=== PATIENT | male | born 1945 | race Caucasian/White ===

== ENCOUNTER 2018-10-05 20:08 | Emergency (ER) | payer MEDICARE ==
[~2018-10-05] VITALS: Ht 182.9 cm; Wt 106.8 kg
[2018-10-05] MEDS ORDERED: CHLORTHALIDONE25 MG PO (20:38)
[2018-10-05] MEDS ORDERED: COREG6.25 MG PO (20:38)
[2018-10-05] MEDS ORDERED: CARVEDILOL25 MG PO (20:38)
[2018-10-05] MEDS ORDERED: LISINOPRIL40 MG PO (20:39)
[2018-10-05] MEDS ORDERED: OMEPRAZOLE10 MG PO (20:39)
[2018-10-05] MEDS ORDERED: ELIQUIS5 MG PO (20:39)
[2018-10-05] MEDS ORDERED: VITAMIN B-12500 MCG PO (20:40)
[2018-10-05] MEDS ORDERED: NORVASC5 M1 PO (20:40)
[2018-10-05 21:20] VITALS: BP 140/76
[2018-10-05] MEDS ORDERED: NAPROSYN500 MG PO (23:22)
== END 2018-10-05 21:20 | disposition home or self-care (01) ==
LOC: ED 20:08
PROC: 2W3DX1Z Immobilization of Left Lower Arm using Splint (ICD-10-PCS; principal; 2018-10-05)
DX: S52.502A Unspecified fracture of the lower end of left radius, initial encounter for closed fracture (principal); S60.222A Contusion of left hand, initial encounter; W01.0XXA Fall on same level from slipping, tripping and stumbling without subsequent striking against object, initial encounter; Y93.69 Activity, other involving other sports and athletics played as a team or group; Y92.39 Other specified sports and athletic area as the place of occurrence of the external cause

== ENCOUNTER 2020-08-05 12:03 | Emergency (ER) | payer MEDICARE ==
[~2020-08-05] VITALS: Ht 182.9 cm; Wt 109.0 kg
[~2020-08-05 12:03] MED LIST: CARVEDILOL25 MG PO; CHLORTHALIDONE25 MG PO; COREG6.25 MG PO; ELIQUIS5 MG PO; LISINOPRIL40 MG PO; NAPROSYN500 MG PO; NORVASC5 M1 PO; OMEPRAZOLE10 MG PO; VITAMIN B-12500 MCG PO
[2020-08-05 12:54] VITALS: BP 128/61
[2020-08-05] MEDS ORDERED: MEDDOSEPAK PO (12:59)
== END 2020-08-05 13:05 | disposition home or self-care (01) ==
LOC: ED 12:03
DX: M77.52 Other enthesopathy of left foot and ankle (principal); I10 Essential (primary) hypertension; Z95.810 Presence of automatic (implantable) cardiac defibrillator

== ENCOUNTER 2021-04-29 12:04 | Emergency (ER) | payer MEDICARE ==
[~2021-04-29] VITALS: Ht 182.9 cm; Wt 113.0 kg
[~2021-04-29 12:04] MED LIST changes: +MEDDOSEPAK PO
[2021-04-29 13:56] VITALS: BP 164/73
== END 2021-04-29 14:06 | disposition home or self-care (01) ==
LOC: ED 12:04
DX: S63.591A Other specified sprain of right wrist, initial encounter (principal); I10 Essential (primary) hypertension; I48.91 Unspecified atrial fibrillation; V48.4XXA Person boarding or alighting a car injured in noncollision transport accident, initial encounter; Z95.810 Presence of automatic (implantable) cardiac defibrillator

== ENCOUNTER 2021-07-31 21:42 | Emergency (ER) | payer MEDICARE ==
[~2021-07-31] VITALS: Ht 182.9 cm; Wt 110.0 kg
[2021-07-31] MEDS ORDERED: HYDROCHLOROT25 MG PO (22:23)
[2021-07-31] MEDS ORDERED: B121000 MC1 PO (22:24)
[2021-07-31] MEDS ORDERED: AMLOD/BENAZP1 CA2 PO (22:25)
[2021-07-31] MEDS ORDERED: LORATADINE10 M1 PO (22:25)
[2021-07-31] MEDS ORDERED: ZINC50 M1 PO (22:26)
[2021-07-31] MEDS ORDERED: KEFLEX500 MG PO (23:19)
[2021-07-31 23:30] VITALS: BP 169/71
== END 2021-07-31 23:40 | disposition home or self-care (01) ==
LOC: ED 21:42
PROC: 0HQKXZZ Repair Right Lower Leg Skin, External Approach (ICD-10-PCS; principal; 2021-07-31)
DX: S81.811A Laceration without foreign body, right lower leg, initial encounter (principal); I10 Essential (primary) hypertension; I48.91 Unspecified atrial fibrillation; W25.XXXA Contact with sharp glass, initial encounter; Y93.E9 Activity, other interior property and clothing maintenance; Y92.009 Unspecified place in unspecified non-institutional (private) residence as the place of occurrence of the external cause; Z95.810 Presence of automatic (implantable) cardiac defibrillator; Z79.01 Long term (current) use of anticoagulants

== ENCOUNTER 2021-08-09 08:51 | Emergency (ER) | payer OTHER, MEDICARE ==
[~2021-08-09] VITALS: Ht 182.9 cm; Wt 95.0 kg
[~2021-08-09 08:51] MED LIST changes: +AMLOD/BENAZP1 CA2 PO; +B121000 MC1 PO; +HYDROCHLOROT25 MG PO; +KEFLEX500 MG PO; +LORATADINE10 M1 PO; +ZINC50 M1 PO
[2021-08-09 11:03] VITALS: BP 128/68
== END 2021-08-09 11:08 | disposition home or self-care (01) | DRG 950 ==
LOC: ED 08:51
DX: S81.811D Laceration without foreign body, right lower leg, subsequent encounter (principal); I10 Essential (primary) hypertension; I48.91 Unspecified atrial fibrillation; X58.XXXD Exposure to other specified factors, subsequent encounter; Z95.810 Presence of automatic (implantable) cardiac defibrillator

== ENCOUNTER 2021-08-15 08:22 | Emergency (ER) | payer OTHER, MEDICARE ==
[~2021-08-15] VITALS: Ht 182.9 cm; Wt 91.0 kg
[2021-08-15 08:45] VITALS: BP 155/67
== END 2021-08-15 08:45 | disposition home or self-care (01) | DRG 950 ==
LOC: ED 08:22
DX: S81.811D Laceration without foreign body, right lower leg, subsequent encounter (principal); I10 Essential (primary) hypertension; I48.91 Unspecified atrial fibrillation; Z95.810 Presence of automatic (implantable) cardiac defibrillator; X58.XXXD Exposure to other specified factors, subsequent encounter

== ENCOUNTER 2023-03-20 15:23 | Observation (INO) | payer OTHER, MEDICARE ==
[2023-03-20] VITALS (10 sets, daily range): BP systolic 119–159; BP diastolic 67–88
[~2023-03-20] VITALS: Ht 182.9 cm; Wt 103.6 kg
[2023-03-20 15:59] LABS: BASO% 0.9 % (0-3); EOS% 16.8 % (0-8); HEMATOCRIT 40.8 % (39.0-50.0); IMMATURE GRANULOCYTES 0.3 % (0.0-5.0); LYMPH% 28.6 % (15-41); MEAN CELL VOLUME 81.3 fL CALC (80.0-100.0); MEAN CORPUSCULAR HGB 25.9 pG CALC (26.0-32.0); MEAN CORPUSCULAR HGB CONC 31.9 g/dL CAL (32.0-36.0); MONO% 8.8 % (2-13); NEUT# 2.62 thou/uL (1.82-7.42); NEUT% 44.6 % (42-76); RED BLOOD COUNT 5.02 mill/uL (4.70-6.10); RED CELL DISTRI WIDTH 15.7 % (11.5-15.5)
[2023-03-20 16:20] LABS: INTERNATIONAL NORMALIZED RATIO 1.2 RATIO (0.7-1.3); PROTHROMBIN TIME 11.1 SECONDS (9.0-12.5)
[2023-03-20 16:23] LABS: ALBUMIN 4.4 g/dL (3.2-5.0); ALKALINE PHOSPHATASE 63 u/l (38-126); ANION GAP 14 (6-22 (CALC)); BUN 17 mg/dL (8-23); BUN/CREATININE RATIO 17 (12-20 (CALC)); CALCULATED LDLCHOLESTEROL 125 mg/dL (62-129 (CALC)); CARBON DIOXIDE 24 mmol/l (22-30); CHLORIDE 104 mmol/l (95-108); CHOLESTEROL HDL RATIO 4.3 (<4.4 (CALC)); GFR FOR AFR.AMER. > 60 ML/MIN (>=60 (CALC)); GFR OTHER RACES > 60 ML/MIN (>=60 (CALC)); HDL CHOLESTEROL 45 mg/dL (39.0-59.0); POTASSIUM 3.9 mmol/l (3.5-5.1); SGOT/AST 28 u/l (19-48); SODIUM 138 mmol/l (137-146); TOTAL CHOLESTEROL 197 mg/dl (0-199); TOTAL PROTEIN 7.2 g/dL (6.3-8.2); TOTAL TRIGLYCERIDES 136 mg/dl (0-149); VLDL CHOLESTROL 27 mg/dl (0-38 (CALC))
[2023-03-20 18:09] LABS: URINE BILIRUBIN - DIPSTICK Negative (NEGATIVE); URINE BLOOD DIPSTICK Negative (NEGATIVE); URINE GLUCOSE - DIPSTICK Negative (NEGATIVE); URINE KETONE Negative (NEGATIVE); URINE LEUK ESTERASE Negative (NEGATIVE); URINE NITRITE - DIPSTICK Negative (Negative); URINE PROTEIN - DIPSTICK Negative (NEG-TRACE); URINE SPECIFIC GRAVITY 1.015; URINE UROBILINOGEN - DIPSTICK 0.2 E.U./dL (0.2)
[2023-03-20 18:10] LABS: URINE COLOR Yellow
[2023-03-21 04:07] VITALS: BP 113/76
[2023-03-21 05:45] LABS: HEMATOCRIT 39.2 % (39.0-50.0); HEMOGLOBIN 12.5 g/dl (14.0-18.0); MEAN CELL VOLUME 81.5 fL CALC (80.0-100.0); MEAN CORPUSCULAR HGB CONC 31.9 g/dL CAL (32.0-36.0); RED BLOOD COUNT 4.81 mill/uL (4.70-6.10); RED CELL DISTRI WIDTH 15.5 % (11.5-15.5)
[2023-03-21 05:58] LABS: ANION GAP 11 (6-22 (CALC)); BUN 15 mg/dL (8-23); BUN/CREATININE RATIO 18 (12-20 (CALC)); CARBON DIOXIDE 25 mmol/l (22-30); CHLORIDE 106 mmol/l (95-108); CREATININE 0.9 mg/dL (0.7-1.3); GFR FOR AFR.AMER. > 60 ML/MIN (>=60 (CALC)); GFR OTHER RACES > 60 ML/MIN (>=60 (CALC)); MAGNESIUM 1.9 mg/dL (1.6-2.3); POTASSIUM 3.8 mmol/l (3.5-5.1); SODIUM 138 mmol/l (137-146)
[2023-03-21 06:26] VITALS: BP 155/85
[2023-03-21 11:01] VITALS: BP 156/89
[2023-03-21] MEDS ORDERED: ATORVASTATIN CA40 MG PO (12:21)
[2023-03-21 15:20] VITALS: BP 122/78
== END 2023-03-21 18:58 | disposition home or self-care (01) | DRG 948 ==
LOC: ED 15:23 → ED-I 17:09 → ED 17:33 → MS2 17:34
PROVIDERS: Emergency Medicine; ADMIT Student in an Organized Health Care Education/Training Program; ATTEND Student in an Organized Health Care Education/Training Program
DX: R53.1 Weakness (principal); R20.0 Anesthesia of skin; I10 Essential (primary) hypertension; I48.91 Unspecified atrial fibrillation; Z95.810 Presence of automatic (implantable) cardiac defibrillator; Z79.01 Long term (current) use of anticoagulants